=== PATIENT | female | born 1985 | race Caucasian/White ===

== ENCOUNTER 2018-07-09 08:49 | Emergency (ER) | END 2018-07-09 09:11 | disposition home or self-care (01) | DX: J03.00 Acute streptococcal tonsillitis, unspecified (principal); F12.10 Cannabis abuse, uncomplicated; F17.210 Nicotine dependence, cigarettes, uncomplicated ==

== ENCOUNTER 2018-07-15 08:20 | Emergency (ER) | payer BC, OTHER ==
[~2018-07-15] VITALS: Ht 162.6 cm; Wt 90.7 kg
[2018-07-15 08:20] VITALS: BP 142/89
[~2018-07-15 08:20] MED LIST: BIRTH CONTROLL
--- NOTE | 2018-07-15 08:25 | NUR ---
[id number], CAME TO ER C/O WORSENING COUGH X 1 WEEK. SKIN IS WARM AND DRY. AWAITING MD FOR EVAL.
[2018-07-15] MEDS ORDERED: DEXAMETHASONE SOD PHOSPHATE 10 MG/ML VIAL IM ONE (09:30)
[2018-07-15] MEDS ORDERED: DEXAMETHASONE SOD PHOSPHATE 10 MG/ML VIAL ONE (09:32)
== END 2018-07-15 10:27 | disposition home or self-care (01) ==
LOC: ER 08:22
DX: J02.9 Acute pharyngitis, unspecified (principal); F17.210 Nicotine dependence, cigarettes, uncomplicated; F12.10 Cannabis abuse, uncomplicated
CPT/HCPCS: J1100